=== PATIENT | female | born 1940 | race African-American/Black ===

== ENCOUNTER → 2018-04-15 | Outpatient (CLI) | payer MEDICARE, OTHER ==
--- NOTE | 2018-04-15 09:17 | RAD ---
DATE: 04/15/2018 EXAM: MAMMO JILLIAN SCREENING BILATERAL HISTORY: Routine screening COMPARISON: 04/09/2017 This study was interpreted with the benefit of Computerized Aided Detection (CAD). Breast Density: HETERO The breast parenchyma is heterogenously dense, which could reduce sensitivity of mammography. Breast parenchyma level C. FINDINGS: 2-D and 3-D tomosynthesis imaging was performed in CC and MLO projections. There is an unchanged smooth nodule in the lateral aspect of the right breast. No new or enlarging breast densities are seen. Scattered benign type calcifications are present. No suspicious microcalcifications have developed. IMPRESSION: Stable mammograms without evidence of malignancy. BI-RADS CATEGORY: 2 BENIGN FINDING(S) RECOMMENDED FOLLOW-UP: 12M 12 MONTH FOLLOW-UP PQRS compliance statement: Patient information was entered into a reminder system with a target due date for the next mammogram. Mammography is a sensitive method for finding small breast cancers, but it does not detect them all and is not a substitute for careful clinical examination. A negative mammogram does not negate a clinically suspicious finding and should not result in delay in biopsying a clinically suspicious abnormality. "Our facility is accredited by the [employer] Mammography [employer]."
== END | disposition home or self-care (01) ==
LOC: MAMMO 08:01
PROVIDERS: ATTEND Family Medicine
DX: Z12.31 Encounter for screening mammogram for malignant neoplasm of breast (principal)
CPT/HCPCS: 77063; 77067

== ENCOUNTER → 2019-04-19 | Outpatient (CLI) | payer MEDICARE, OTHER ==
--- NOTE | 2019-04-20 11:25 | RAD ---
DATE: 04/19/2019 EXAM: MAMMO JILLIAN SCREENING BILATERAL HISTORY: Routine screening COMPARISON: 04/06/2016, 04/09/2017, 04/15/2018 mammographic exams This study was interpreted with the benefit of Computerized Aided Detection (CAD). Breast Density: SCATTERED The breast parenchyma shows scattered fibroglandular densities. Breast parenchyma level B. FINDINGS: Right outer breast mass has remained stable. Benign calcifications are present. No suspicious calcifications or distortion. Vascular calcification is present. IMPRESSION: Stable BI-RADS CATEGORY: 1 NEGATIVE RECOMMENDED FOLLOW-UP: 12M 12 MONTH FOLLOW-UP PQRS compliance statement: Patient information was entered into a reminder system with a target due date for the next mammogram. Mammography is a sensitive method for finding small breast cancers, but it does not detect them all and is not a substitute for careful clinical examination. A negative mammogram does not negate a clinically suspicious finding and should not result in delay in biopsying a clinically suspicious abnormality. "Our facility is accredited by the [employer] Mammography Program."
== END | disposition home or self-care (01) ==
LOC: MAMMO 08:45
PROVIDERS: ATTEND Family Medicine
DX: Z12.31 Encounter for screening mammogram for malignant neoplasm of breast (principal); N63.10 Unspecified lump in the right breast, unspecified quadrant; N64.89 Other specified disorders of breast
CPT/HCPCS: 77063; 77067

== ENCOUNTER → 2020-04-18 | Outpatient (CLI) | payer MEDICARE ==
--- NOTE | 2020-04-19 12:21 | RAD ---
DATE: 04/18/2020 9:31 AM EXAM: MAMMO JILLIAN SCREENING BILATERAL HISTORY: Screening COMPARISON: 04/19/2019 Bilateral CC and MLO views of the breasts were performed. Bilateral breast tomosynthesis was performed in CC and MLO projections. This study was interpreted with the benefit of Computerized Aided Detection (CAD). FINDINGS: Breast Density: SCATTERED The breast parenchyma shows scattered fibroglandular densities. Breast parenchyma level B A 9 mm oval mass in the middle third lateral right breast at the approximate 9:00 position 8 cm from the nipple needs additional imaging with targeted ultrasound. It cannot be confirmed stable from previous exams. The left mammogram is negative. IMPRESSION: No mammographic evidence of malignancy. BI-RADS CATEGORY: 0 INCOMPLETE: NEEDS ADDITIONAL IMAGING EVALUATION AND/OR PRIOR MAMMOGRAMS FOR COMPARISON. RECOMMENDED FOLLOW-UP: ADD ADDITIONAL IMAGING The patient will be contacted to return for additional imaging and a supplemental report will follow. PQRS compliance statement: Patient information was entered into a reminder system with a target due date for the next mammogram. Mammography is a sensitive method for finding small breast cancers, but it does not detect them all and is not a substitute for careful clinical examination. A negative mammogram does not negate a clinically suspicious finding and should not result in delay in biopsying a clinically suspicious abnormality. "Our facility is accredited by the [employer] Mammography Program."
== END ==
LOC: MAMMO 09:21
PROVIDERS: ATTEND Family Medicine
DX: Z12.31 Encounter for screening mammogram for malignant neoplasm of breast (principal); N64.89 Other specified disorders of breast
CPT/HCPCS: 77063; 77067

== ENCOUNTER → 2020-04-24 | Outpatient (CLI) | payer MEDICARE ==
--- NOTE | 2020-04-24 17:17 | RAD ---
Examination: Limited right breast ultrasound. INDICATION: Screening recall for mass in the lateral right breast COMPARISON: Screening mammogram of 04/18/2020. TECHNIQUE: Grayscale and color Doppler imaging of the lateral right breast was performed FINDINGS: Targeted ultrasound of the lateral right breast identified an oval hypoechoic 1.1 cm mass with slightly irregular margins at the 10:00 position 8 cm from the nipple that correlates with the mammographic finding recalled from screening. Sonographic survey of the right axilla revealed no adenopathy. IMPRESSION: Suspicious 1.1 cm mass in the upper-outer quadrant right breast at the 10:00 position 8 cm from the nipple. Recommend ultrasound-guided right breast core needle biopsy. BI-RADS Category 4 Findings suspicious for malignancy Biopsy recommended Findings and recommendations telephoned to patient's referring physician Dr. Khurram Alvarado's office where nurse Trent took the report on his behalf at 1:55 PM on 04/24/2020 Electronically signed by: Hussain Ding MD (04/24/2020 5:15 PM) [id number]
== END ==
LOC: US 11:56
PROVIDERS: ATTEND Family Medicine
DX: R92.8 Other abnormal and inconclusive findings on diagnostic imaging of breast (principal); N63.11 Unspecified lump in the right breast, upper outer quadrant
CPT/HCPCS: 76641

== ENCOUNTER → 2020-05-16 | Outpatient (CLI) | payer MEDICARE ==
--- NOTE | 2020-05-16 12:10 | RAD ---
Examination: US GDE NDL BX/ASPIR/INJ/LOC History: Reason: RT BREAST MASS / Spl. Instructions: / History: Comparison/Correlation: None Findings: Risks, benefits, and alternatives regarding ultrasound-guided core biopsy of right breast 1 0:00 mass were discussed with the patient and informed consent was obtained. Cleansing with ChloraPre p at the anticipated site of needle placement was performed. Sterile draping, sterile gel, and steril e probe cover is were utilized. Approximately 9 cc of 1 percent lidocaine was administered subcutaneo usly and along the expected course of the needle tracks. Lateral approach was utilized. Scalpel incision was made. An introducer was placed. A 12-gauge core b iopsy needle was utilized. Total of 5 passes were performed and samples were placed in a formalin jar . Biopsy clip marker was then placed via the introducer into the mass. The patient tolerated the proc edure well. No immediate complications. Impression: Successful core biopsy of the right breast 10:00 mass 8 cm from the nipple. Electronically signed by: Bubba Davis MD (05/16/2020 12:08 PM) [id number]
--- NOTE | 2020-05-16 14:42 | RAD ---
Examination: MG DIAGNOSTICUNILAT MAMMO History: Reason: post biopsy clip placement / Spl. Instructions: / History: Comparison/Correlation: None Findings: Digital CC and ML images of the right breast were obtained. CAD utilized. Scattered fibroglandular densities are present. A right upper outer breast 6 cm from the nipple, the biopsy clip marker is seen. No hematoma. Impression: Biopsy clip marker at the right upper outer breast. Electronically signed by: Bubba Davis MD (05/16/2020 2:39 PM) [id number]
--- NOTE | 2020-05-20 19:11 | PATHOLOGY ---
[facility] Accession Number: [id number] . 01 Material submitted: . breast - RIGHT BREAST MASS, 10:00, 8CMFN. Modifiers: right, 10:00 . 01 Clinical history: . ABNORMAL RT MAMOGRAM 793 . 02 Diagnosis: Breast tissue, right breast mass 10:00, needle biopsies: - Ancient fibroadenoma. . ([facility]:mm; 05/20/2020) [facility] 05/20/2020 1013 Local . 02 Comment: There is no evidence of malignancy. . ([facility]:mm; 05/20/2020) . 02 Electronically signed: . Khurram Clay MD, Pathologist NPI- [id number] . 01 Gross description: . The specimen is received in formalin, labeled "White, Carmen, right breast" and consists of 6 needle cores of yellow-gonzalez tissue measuring between 0.3 cm and 1.5 cm in length and ranging from 0.1-0.3 cm in diameter which are entirely submitted in A1-A3. Specimen was obtained at 10:35 AM on 05/16/2020 and placed in formalin at 10:35 AM. The cold ischemic time is less than 1 minute and the total formalin fixation time is greater than 6 hours less than 72 hours. (SDY; 05/17/2020) SYU/SYU 05/17/2020 0956 Local . 02 Pathologist provided ICD-10: D24.1 . 02 CPT . 626589 Specimen Comment: A courtesy copy of this report has been sent to [phone], [phone] Specimen Comment: [phone] Specimen Comment: Report sent to / DR CARMONA Performed at: [address] [place], [place] [address] [address], [place], [place] [id number] MD Wes Strange MD Phone: [phone] Performed at: [address] [id number] MD Khurram Clay MD Phone: [phone]
== END | disposition home or self-care (01) ==
LOC: US 09:55
PROVIDERS: ATTEND Family Medicine
DX: N63.11 Unspecified lump in the right breast, upper outer quadrant (principal); R92.8 Other abnormal and inconclusive findings on diagnostic imaging of breast; D24.1 Benign neoplasm of right breast; Z79.899 Other long term (current) drug therapy
CPT/HCPCS: 19083; 77065; C1713; 76942